=== PATIENT | female | born 1990 | race American Indian/Alaskan Native ===

== ENCOUNTER 2021-06-24 15:42 | Emergency (ER) | payer MEDICAID ==
[2021-06-24 16:16] VITALS: BP 131/76
[2021-06-24] MEDS ORDERED: ACETAMINOPHEN 325 MG TAB PO ONE (16:32)
--- NOTE | 2021-06-24 16:35 | Emergency Department Report ---
ED General Adult HPI - General Chief complaint: Vaginal Bleeding Stated complaint: ABD PAIN Time Seen by Provider: 06/24/21 16:04 Source: patient Mode of arrival: Ambulatory Limitations: No Limitations - History of Present Illness Initial comments: Patient is a 31-year-old female presents emergency room with concerns of a possible miscarriage. Patient states that she has been having lower abdominal cramping and bleeding for approximately a week. She states 2 weeks ago she saw her [employer]ER and reports that the fetus had a heartbeat at that time. She states her last menstrual cycle was 05/24/2021. She denies any fever, nausea, vomiting, diarrhea, dysuria. PMHx asthma. No allergies to medications. /P: 1/A: 2 Severity scale (0 -10): 0 - Related Data Home Medications Medication Instructions Recorded Confirmed Last Taken No Known Home Medications [No 06/24/21 06/24/21 Unknown Reported Home Medications] Allergies Allergy/AdvReac Type Severity Reaction Status Date / Time No Known Allergies Allergy Verified 06/24/21 16:18 ED Review of Systems ROS: Stated complaint: ABD PAIN Other details as noted in HPI Comment: All other systems reviewed and negative ED Past Medical Hx - Past Medical History Previous Medical History?: Yes Hx Asthma: Yes - Social History Smoking Status: Never Smoker Substance Use Type: None - Medications Home Medications: Home Medications Medication Instructions Recorded Confirmed Last Taken Type No Known Home Medications [No 06/24/21 06/24/21 Unknown History Reported Home Medications] ED Physical Exam - General Limitations: No Limitations General appearance: alert, in no apparent distress - Head Head exam: Present: atraumatic, normocephalic - Eye Eye exam: Present: normal appearance - ENT ENT exam: Present: mucous membranes moist - Respiratory Respiratory exam: Present: normal lung sounds bilaterally. Absent: respiratory distress, wheezes, rales, rhonchi, stridor, chest wall tenderness, accessory muscle use, decreased breath sounds, prolonged expiratory - Cardiovascular Cardiovascular Exam: Present: regular rate, normal rhythm, normal heart sounds. Absent: systolic murmur, diastolic murmur, rubs, gallop - GI/Abdominal GI/Abdominal exam: Present: soft, normal bowel sounds. Absent: distended, tenderness, guarding, rebound, rigid - Neurological Exam Neurological exam: Present: alert, oriented X3 - Psychiatric Psychiatric exam: Present: normal affect, normal mood - Skin Skin exam: Present: warm, dry, intact ED Course Vital Signs 06/24/21 06/24/21 16:13 16:16 Temperature 98.6 F 98.6 F Pulse Rate 81 81 Respiratory 16 16 Rate Blood Pressure 131/76 Blood Pressure 131/76 [Left] O2 Sat by Pulse 99 99 Oximetry ED Medical Decision Making - Lab Data Result diagrams: 06/24/21 16:54 06/24/21 16:54 Lab Results 06/24/21 06/24/21 06/24/21 Range/Units 16:54 16:54 16:54 WBC 11.2 H (4.5-11.0) K/mm3 RBC 4.31 (3.65-5.03) M/mm3 Hgb 13.1 (10.1-14.3) gm/dl Hct 41.4 (30.3-42.9) % MCV 96 (79-97) fl MCH 31 (28-32) pg MCHC 32 (30-34) % RDW 14.6 (13.2-15.2) % Plt Count 192 (140-440) K/mm3 Lymph % (Auto) 23.6 (13.4-35.0) % [place] % (Auto) 7.6 H (0.0-7.3) % Eos % (Auto) 1.6 (0.0-4.3) % Baso % (Auto) 0.5 (0.0-1.8) % Lymph # (Auto) 2.6 (1.2-5.4) K/mm3 [place] # (Auto) 0.9 H (0.0-0.8) K/mm3 Eos # (Auto) 0.2 (0.0-0.4) K/mm3 Baso # (Auto) 0.1 (0.0-0.1) K/mm3 Seg Neutrophils % 66.7 (40.0-70.0) % Seg Neutrophils # 7.5 (1.8-7.7) K/mm3 Sodium 139 (137-145) mmol/L Potassium 4.0 (3.6-5.0) mmol/L Chloride 104.5 (98-107) mmol/L Carbon Dioxide 22 (22-30) mmol/L Anion Gap 17 mmol/L BUN 13 (7-17) mg/dL Creatinine 0.7 (0.6-1.2) mg/dL Estimated GFR > 60 ml/min BUN/Creatinine Ratio 19 % Glucose 86 (65-100) mg/dL Calcium 8.8 (8.4-10.2) mg/dL Total Bilirubin 0.20 (0.1-1.2) mg/dL AST 15 (5-40) units/L ALT 13 (7-56) units/L Alkaline Phosphatase 99 (35-129) units/L Total Protein 7.1 (6.3-8.2) g/dL Albumin 3.6 L (3.9-5) g/dL Albumin/Globulin Ratio 1.0 % HCG, Quant 1629 H (0-4) mIU/mL Urine Color (Yellow) Urine Turbidity (Clear) Urine pH (5.0-7.0) Ur Specific [place] (1.003-1.030) Urine Protein (Negative) mg/dL Urine Glucose (UA) (Negative) mg/dL Urine Ketones (Negative) mg/dL Urine Blood (Negative) Urine Nitrite (Negative) Urine Bilirubin (Negative) Urine Urobilinogen (<2.0) mg/dL Ur Leukocyte Esterase (Negative) Urine WBC (Auto) (0.0-6.0) /HPF Urine RBC (Auto) (0.0-6.0) /HPF U Epithel Cells (Auto) (0-13.0) /HPF Urine Mucus /HPF Blood Type 06/24/21 06/24/21 Range/Units 17:15 Unknown WBC (4.5-11.0) K/mm3 RBC (3.65-5.03) M/mm3 Hgb (10.1-14.3) gm/dl Hct (30.3-42.9) % MCV (79-97) fl MCH (28-32) pg MCHC (30-34) % RDW (13.2-15.2) % Plt Count (140-440) K/mm3 Lymph % (Auto) (13.4-35.0) % [place] % (Auto) (0.0-7.3) % Eos % (Auto) (0.0-4.3) % Baso % (Auto) (0.0-1.8) % Lymph # (Auto) (1.2-5.4) K/mm3 [place] # (Auto) (0.0-0.8) K/mm3 Eos # (Auto) (0.0-0.4) K/mm3 Baso # (Auto) (0.0-0.1) K/mm3 Seg Neutrophils % (40.0-70.0) % Seg Neutrophils # (1.8-7.7) K/mm3 Sodium (137-145) mmol/L Potassium (3.6-5.0) mmol/L Chloride (98-107) mmol/L Carbon Dioxide (22-30) mmol/L Anion Gap mmol/L BUN (7-17) mg/dL Creatinine (0.6-1.2) mg/dL Estimated GFR ml/min BUN/Creatinine Ratio % Glucose (65-100) mg/dL Calcium (8.4-10.2) mg/dL Total Bilirubin (0.1-1.2) mg/dL AST (5-40) units/L ALT (7-56) units/L Alkaline Phosphatase (35-129) units/L Total Protein (6.3-8.2) g/dL Albumin (3.9-5) g/dL Albumin/Globulin Ratio % HCG, Quant (0-4) mIU/mL Urine Color Yellow (Yellow) Urine Turbidity Clear (Clear) Urine pH 6.0 (5.0-7.0) Ur Specific [place] 1.025 (1.003-1.030) Urine Protein 30 mg/dl (Negative) mg/dL Urine Glucose (UA) Neg (Negative) mg/dL Urine Ketones Neg (Negative) mg/dL Urine Blood Lg (Negative) Urine Nitrite Neg (Negative) Urine Bilirubin Neg (Negative) Urine Urobilinogen < 2.0 (<2.0) mg/dL Ur Leukocyte Esterase Neg (Negative) Urine WBC (Auto) 7.0 H (0.0-6.0) /HPF Urine RBC (Auto) > 182.0 (0.0-6.0) /HPF U Epithel Cells (Auto) 5.0 (0-13.0) /HPF Urine Mucus Few /HPF Blood Type O POSITIVE - Radiology Data Radiology results: report reviewed Ordering Physician: JD REDDY Date of Service: 06/24/21 Procedure(s): US OB transvaginal Accession Number(s): [id number] cc: JD REDDY ULTRASOUND OBSTETRIC INDICATION / CLINICAL INFORMATION: , cramping, bleeding. Clinical Gestational Age (GA) in weeks, days: 4, 3 TECHNIQUE: Transabdominal and Transvaginal. COMPARISON: None available. FINDINGS: GESTATIONAL SAC: Not seen YOLK SAC: Not seen EMBRYO/FETUS: Not seen ADNEXA: No significant abnormality. FREE FLUID: None. ADDITIONAL FINDINGS: None. IMPRESSION: No evidence of intrauterine gestation. In the presence of a positive test this is a of unknown location in the differential includes very early versus missed versus ectopic. Recommend repeat ultrasound in 7-10 days. Signer Name: Gadiel Hudson DO Signed: 06/24/2021 6:22 PM Workstation Name: [id number] Transcribed By: SANTIAGO Dictated By: GADIEL HUDSON DO Electronically Authenticated By: GADIEL HUDSON DO Signed Date/Time: 06/24/211821 DD/ 20 TD/TT: - Medical Decision Making Patient is a 31-year-old female presents emergency room with concerns of a possible miscarriage. Patient states that she has been having lower abdominal cramping and bleeding for approximately a week. She states 2 weeks ago she saw her [employer] and reports that the fetus had a heartbeat at that time. She states her last menstrual cycle was 05/24/2021. She denies any fever, nausea, vomiting, diarrhea, dysuria. PMHx asthma. No allergies to medications. /P: 1/A: 2. Vitals are stable. No abdominal tenderness on exam. hCG quant is 1629. UA without evidence of UTI. Patient is Rh+. OB ultrasound No evidence of intrauterine gestation. In the presence of a positive test this is a of unknown location in the differential includes very early versus missed versus ectopic. Recommend repeat ultrasound in 7-10 days. Discussed all findings with patient and threatened miscarriage discussed all differential diagnosis with patient and the importance of [employer] follow-up. Advised patient Take Tylenol as needed for any cramping. Increase your water intake. Practice pelvic rest. Follow-up with your [employer]ER. You need to have a repeat hCG quant in 2 to 3 days. Return to emergency room for any new or worsening symptoms. Today 06/24/2021 your hCG quant was 1629. Critical care attestation.: If time is entered above; I have spent that time in minutes in the direct care of this critically ill patient, excluding procedure time. ED Disposition Clinical Impression: Threatened miscarriage Disposition: 01 HOME / SELF CARE / HOMELESS Is pt being admited?: No Does the pt Need Aspirin: No Condition: Stable Instructions: Threatened Miscarriage Additional Instructions: Take Tylenol as needed for any cramping. Increase your water intake. Practice pelvic rest. Follow-up with your [employer]. You need to have a repeat hCG quant in 2 to 3 days. Return to emergency room for any new or worsening symptoms. Today 06/24/2021 your hCG quant was 1629. Referrals: PRIMARY CARE,MD [Primary Care Provider] - 2-3 Days your, environmental lawyer [Other] - 2-3 Days Time of Disposition: 18:33 Print Language: SYRIAC
[2021-06-24 16:45] LABS: Bilirubin,Urine NEG (Negative); Blood,Urine LG (Negative); Color,Urine Yellow (Yellow); Mucus,Urine FEW /HPF; Urobilinogen,Urine < 2.0 mg/dL (<2.0)
[2021-06-24 16:46] LABS: RBC,Urine > 182.0 /HPF (0.0-6.0)
[2021-06-24 17:35] LABS: Alanine Aminotransferase 13 units/L (7-56); Albumin 3.6 g/dL (3.9-5); Blood Urea Nitrogen 13 mg/dL (7-17); Calcium 8.8 mg/dL (8.4-10.2); Hemolysis Index 15
[2021-06-24 17:36] LABS: BUN/Creatinine Ratio 19
[2021-06-24 17:43] LABS: Basophils # (Auto) 0.1 K/mm3 (0.0-0.1); Basophils % (Auto) 0.5 % (0.0-1.8); Eosinophils # (Auto) 0.2 K/mm3 (0.0-0.4); Eosinophils % (Auto) 1.6 % (0.0-4.3); Hematocrit 41.4 % (30.3-42.9); Hemoglobin 13.1 gm/dl (10.1-14.3); Lymphocytes # (Auto) 2.6 K/mm3 (1.2-5.4); Lymphocytes % (Auto) 23.6 % (13.4-35.0); Mean Corpuscular HGB Conc 32 % (30-34); Mean Corpuscular Volume 96 fl (79-97); Monocytes # (Auto) 0.9 K/mm3 (0.0-0.8); Monocytes % (Auto) 7.6 % (0.0-7.3); Platelet Count 192 K/mm3 (140-440); Red Blood Count 4.31 M/mm3 (3.65-5.03); Red Cell Distribution Width 14.6 % (13.2-15.2)
--- NOTE | 2021-06-24 18:26 | Ultrasound Report ---
ULTRASOUND OBSTETRIC INDICATION / CLINICAL INFORMATION: , cramping, bleeding. Clinical Gestational Age (GA) in weeks, days: 4, 3 TECHNIQUE: Transabdominal and Transvaginal. COMPARISON: None available. FINDINGS: GESTATIONAL SAC: Not seen YOLK SAC: Not seen EMBRYO/FETUS: Not seen ADNEXA: No significant abnormality. FREE FLUID: None. ADDITIONAL FINDINGS: None. IMPRESSION: No evidence of intrauterine gestation. In the presence of a positive test this is a pregnan cy of unknown location in the differential includes very early versus missed versu s ectopic. Recommend repeat ultrasound in 7-10 days. Signer Name: Gadiel Hudson DO Signed: 06/24/2021 6:22 PM Workstation Name: [id number]
== END 2021-06-24 19:14 | disposition home or self-care (01) ==
LOC: ED 15:42
DX: O20.0 Threatened abortion (principal); J45.909 Unspecified asthma, uncomplicated; Z3A.01 Less than 8 weeks gestation of pregnancy
CPT/HCPCS: 36415; 76801; 76817; 80053; 81001; 84702; 85025; 86900; 86901; 99284